=== PATIENT | male | born 1980 | race Caucasian/White ===

== ENCOUNTER 2017-12-23 12:03 | Emergency (ER) | payer MEDICARE, MEDICAID ==
[~2017-12-23] VITALS: Ht 165.1 cm; Wt 84.1 kg
[~2017-12-23 12:03] MED LIST: ALBU8.5H8 IH; ALPR-624 PO; AZEL23SP IH; BENA10TA10 PO; BUDE10.2 IH; BUPR150T26 PO; MODA200T25 PO; MONT10TA21 PO; ONDA4TAB9 PO; PALI156D IM; RIZA10TA29 PO; SYN0.1T PO; VAL5T PO; VORT20TA PO
[2017-12-23 12:19] VITALS: BP 120/85
[2017-12-23] MEDS ORDERED: HYDROcodone/acetaminophen 10/325mg tab PO ONE (12:35)
[2017-12-23] MEDS ORDERED: METH-360 PO (12:36)
== END 2017-12-23 12:51 | disposition home or self-care (01) ==
LOC: ER 12:03
DX: G89.29 Other chronic pain (principal); M54.5 Low back pain; E78.00 Pure hypercholesterolemia, unspecified; I10 Essential (primary) hypertension; J45.909 Unspecified asthma, uncomplicated; F31.9 Bipolar disorder, unspecified; Z90.89 Acquired absence of other organs; Z88.0 Allergy status to penicillin; Z88.2 Allergy status to sulfonamides; Z91.010 Allergy to peanuts; Z88.6 Allergy status to analgesic agent; Z79.899 Other long term (current) drug therapy
CPT/HCPCS: 99283

== ENCOUNTER 2019-09-26 14:07 | Emergency (ER) | payer MEDICARE, MEDICAID ==
[~2019-09-26] VITALS: Ht 165.1 cm; Wt 100.0 kg
[~2019-09-26 14:07] MED LIST changes: -BENA10TA10 PO; +BENA10TA75 PO; +METH-360 PO; -RIZA10TA29 PO; +RIZA10TA98 PO
--- NOTE | 2019-09-26 14:59 | NUR ---
Pt had requested to have Dr. Bowers office called and ask "what Dr. Cornell wanted him to have checked out at the emergency department". Called and spoke with Dr. Bowers nurse Helen. Nurse reports pt had been frequenty calling and reporting/complaining of many sxs. Pt and his mother had researched online possible complications regarding meds pt taking and was worried pt could have Neuromalignant Syndrome, or serotonin syndrome. As Dr. Bowers office is currently only doing telephone consults and unable to do physical, pt was referred to have sxs evaluated at emergency department. RN verified pt had recently tested possitive for Elaido-Ha virus 09/18/19
[2019-09-26 15:59] LABS: BASOPHILS % (AUTO) 0.5 % (0-1); EOSINOPHILS # (AUTO) 0.1 X10'3 (0-0.9); EOSINOPHILS % (AUTO) 1.3 % (0-6); HEMATOCRIT 44.5 % (42.0-52.0); HEMOGLOBIN 15.1 g/dl (14.0-17.9); LYMPHOCYTES # (AUTO) 1.7 X10'3 (1.1-4.8); LYMPHOCYTES % (AUTO) 23.4 % (21-51); MEAN CORPUSCULAR HEMOGLOBIN 30.8 PG (27.0-31.0); MEAN CORPUSCULAR VOLUME 90.7 FL (78-98); MEAN PLATELET VOLUME 7.1 FL (7.4-10.4); MONOCYTES # (AUTO) 0.4 X10'3 (0-0.9); MONOCYTES % (AUTO) 5.6 % (2-12); NEUTROPHILS % (AUTO) 69.2 % (42-75); PLATELET COUNT 328 X10'3 (140-440); RED BLOOD COUNT 4.91 X10'6 (4.70-6.10); RED CELL DISTRIBUTION WIDTH 13.1 % (11.5-14.5); WHITE BLOOD COUNT 7.2 X10'3 (4.5-11.0)
--- NOTE | 2019-09-26 16:12 | NUR ---
x-ray is happening at this time.
[2019-09-26 16:15] LABS: ALANINE AMINOTRANSFERASE 29 U/L (12-78); ALBUMIN 3.7 G/DL (3.4-5.0); ALBUMIN/GLOBULIN RATIO 0.9 (1.1-1.5); ALKALINE PHOSPHATASE 85 IU/L (46-116); ANION GAP 5 (8-16); ASPARTATE AMINO TRANSFERASE 22 U/L (10-37); BILIRUBIN,TOTAL 0.3 MG/DL (0.1-1.0); BLOOD UREA NITROGEN 13 MG/DL (7-18); BUN/CREATININE RATIO 12.6 (5.4-32.0); C-REACTIVE PROTEIN 0.23 MG/DL (0.0-0.5); CALCIUM 9.2 MG/DL (8.5-10.1); CHLORIDE 105 MMOL/L (99-107); CREATININE 1.03 MG/DL (0.60-1.10); GLUCOSE 92 MG/DL (70-104); POTASSIUM 4.4 MMOL/L (3.5-5.1); SODIUM 143 MMOL/L (135-145); TOTAL CARBON DIOXIDE 33.2 MMOL/L (24-32); TOTAL PROTEIN 7.7 G/DL (6.4-8.2); eGFR 80 ML/MIN
[2019-09-26 17:31] VITALS: BP 125/86
== END 2019-09-26 17:27 | disposition home or self-care (01) ==
LOC: ER 14:11
DX: B34.9 Viral infection, unspecified (principal); E66.9 Obesity, unspecified; E78.00 Pure hypercholesterolemia, unspecified; I10 Essential (primary) hypertension; J45.909 Unspecified asthma, uncomplicated; G89.29 Other chronic pain; Z87.01 Personal history of pneumonia (recurrent); Z79.899 Other long term (current) drug therapy; Z90.49 Acquired absence of other specified parts of digestive tract; Z88.6 Allergy status to analgesic agent; Z88.1 Allergy status to other antibiotic agents; Z88.0 Allergy status to penicillin; Z88.2 Allergy status to sulfonamides
CPT/HCPCS: 36415; 71045; 80053; 85025; 85651; 86140; 93005; 99285

== ENCOUNTER 2020-06-17 15:45 | Emergency (ER) | payer MEDICARE, MEDICAID ==
[~2020-06-17] VITALS: Ht 165.1 cm; Wt 88.6 kg
--- NOTE | 2020-06-17 17:30 | NUR ---
RN assumed care of pt. admission assessments done and belongings checked in. Pt. reports that he was recently discharged from [facility] psych unit and discharged after 6 days. Pt. reports that 6 months ago he got mono and since then his physical and mental health have deteriorated. Pt. states that he developed chronic dizzy spells, muscle spasms and shaking that have taken a toll on his mental health. Pt. was dx with Bipolar since 15 y.o. Pt. 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 Pt. reports that at [place] they tried different muscle relaxors without efect. Pt. reports SI without a plan. Pt. states that he wants to go to bed and not wake up. Pt. denies HI, A/V hallucinations. Pt. is calm and cooperative. Pt.'s mother called and pt. allowed this RN to speak to him.
[2020-06-17 17:46] LABS: BASOPHILS # (AUTO) 0.1 X10'3 (0-0.2); BASOPHILS % (AUTO) 0.7 % (0-1); EOSINOPHILS # (AUTO) 0.2 X10'3 (0-0.9); EOSINOPHILS % (AUTO) 2.8 % (0-6); HEMATOCRIT 45.6 % (42.0-52.0); HEMOGLOBIN 15.4 g/dl (14.0-17.9); LYMPHOCYTES # (AUTO) 2.2 X10'3 (1.1-4.8); LYMPHOCYTES % (AUTO) 26.4 % (21-51); MEAN CORPUSCULAR HEMOGLOBIN 31.3 PG (27.0-31.0); MEAN CORPUSCULAR HGB CONC 33.7 g/dL (33.0-36.5); MEAN CORPUSCULAR VOLUME 92.7 FL (78-98); MEAN PLATELET VOLUME 7.7 FL (7.4-10.4); MONOCYTES # (AUTO) 0.5 X10'3 (0-0.9); NEUTROPHILS # (AUTO) 5.3 X10'3 (1.8-7.7); NEUTROPHILS % (AUTO) 64.1 % (42-75); PLATELET COUNT 335 X10'3 (140-440); RED BLOOD COUNT 4.92 X10'6 (4.70-6.10); RED CELL DISTRIBUTION WIDTH 12.4 % (11.5-14.5); WHITE BLOOD COUNT 8.2 X10'3 (4.5-11.0)
[2020-06-17 17:57] LABS: ALANINE AMINOTRANSFERASE 62 U/L (12-78); ALBUMIN 3.9 G/DL (3.4-5.0); ALBUMIN/GLOBULIN RATIO 0.9 (1.1-1.5); ALKALINE PHOSPHATASE 97 IU/L (46-116); ANION GAP 2 (8-16); ASPARTATE AMINO TRANSFERASE 31 U/L (10-37); BILIRUBIN,TOTAL 0.4 MG/DL (0.1-1.0); BLOOD UREA NITROGEN 13 MG/DL (7-18); BUN/CREATININE RATIO 16.3 (5.4-32.0); CALCIUM 9.3 MG/DL (8.5-10.1); CHLORIDE 103 MMOL/L (99-107); GLUCOSE 104 MG/DL (70-104); POTASSIUM 5.3 MMOL/L (3.5-5.1); SODIUM 139 MMOL/L (135-145); TOTAL CARBON DIOXIDE 34.1 MMOL/L (24-32); TOTAL PROTEIN 8.2 G/DL (6.4-8.2); eGFR > 90 ML/MIN
--- NOTE | 2020-06-17 18:00 | NUR ---
Mother contact: [facility] [phone]. Cell [phone].
[2020-06-17 18:17] LABS: ETHANOL < 0.010 GM/DL (0.0-0.010)
[2020-06-17] MEDS ORDERED: PROP10TA10 (18:40)
[2020-06-17] MEDS ORDERED: OXYB5TAB16 (18:40)
[2020-06-17] MEDS ORDERED: FLUOXETINE (18:40)
[2020-06-17] MEDS ORDERED: BUPR1FIL17 SL ×2 (18:40→19:55)
[2020-06-17] MEDS ORDERED: BENA10TA74 PO (18:40)
[2020-06-17] MEDS ORDERED: LEVO88TA7 PO (18:40)
[2020-06-17] MEDS ORDERED: FLUO-103 (18:40)
[2020-06-17] MEDS ORDERED: DEXT10CA19 PO (18:40)
[2020-06-17] MEDS ORDERED: TEMA15CA PO (18:40)
[2020-06-17 19:22] LABS: URINE AMPHETAMINE SCREEN NEGATIVE (Neg); URINE BARBITUATE SCREEN NEGATIVE (Neg); URINE BENZODIAZEPINES SCREEN NEGATIVE (Neg); URINE CANNABINOID SCREEN NEGATIVE (Neg); URINE COCAINE SCREEN NEGATIVE (Neg); URINE METHADONE SCREEN NEGATIVE (Neg); URINE OPIATE SCREEN NEGATIVE (Neg); URINE PHENCYCLIDINE SCREEN NEGATIVE (Neg)
--- NOTE | 2020-06-17 19:31 | NUR ---
PACKET FAXED TO [facility]
[2020-06-17] MEDS ORDERED: OXYB5TAB16 PO (19:55)
[2020-06-17] MEDS ORDERED: FLUT1DIS15 INH (19:55)
[2020-06-17] MEDS ORDERED: PROP10TA10 PO (19:55)
[2020-06-17] MEDS ORDERED: FLUO-81 PO (19:55)
[2020-06-17] MEDS ORDERED: ALBUTEROL INHALER 1 PUFF/90 MCG INHALER IH PRN (20:15)
[2020-06-17] MEDS ORDERED: albuterol 2.5 MG/3 ML nebule NEB PRN (20:35)
[2020-06-17] MEDS: propranolol 10mg tablet PO SCH (20:35)
[2020-06-17] MEDS: buprenorphine/naloxone 2-0.5mg sublingual tablet SL SCH (20:37)
[2020-06-17] MEDS ORDERED: oxybutynin 5mg tablet PO SCH (21:00)
[2020-06-17] MEDS ORDERED: temazepam 15mg capsule PO SCH (21:00)
[2020-06-17] MEDS: albuterol 2.5 MG/3 ML nebule NEB SCH (22:35)
[2020-06-18 05:00] VITALS: BP_DIAS 69
[2020-06-18 06:59] LABS: CLARITY,URINE CLEAR (Clear); COLOR,URINE YELLOW (Yellow); GLUCOSE, URINE NEGATIVE (Neg); KETONES,URINE NEGATIVE (Neg); LEUKOCYTE ESTERASE ,URINE NEGATIVE (Neg); NITRITES, URINE NEGATIVE (Neg); OCCULT BLOOD,URINE NEGATIVE (Neg); PROTEIN,URINE NEGATIVE (Neg); UROBILINOGEN,URINE 0.2 E.U/dL (0.2-1.0)
--- NOTE | 2020-06-18 07:00 | NUR ---
ASSUMED CARE OF PATIENT. PT IS SLEEPING
[2020-06-18 07:02] LABS: UA COLLECTION TYPE CLN CATCH MIDSTREAM
[2020-06-18] MEDS ORDERED: FLUoxetine 10mg capsule PO SCH (08:00)
[2020-06-18] MEDS ORDERED: lisinopril 10 MG tablet PO SCH (08:00)
[2020-06-18] MEDS ORDERED: dextroamphetamine/amphetamine ER 5 MG CAP.ER.24H PO SCH (08:00)
[2020-06-18] MEDS ORDERED: budesonide 0.5mg/2ml UD nebule IH SCH (08:00)
[2020-06-18] MEDS ORDERED: levoTHYROXINE 88mcg tablet PO SCH (08:00)
[2020-06-18] MEDS: albuterol 2.5 MG/3 ML nebule NEB SCH (08:00)
--- NOTE | 2020-06-18 08:00 | NUR ---
PT IS AWAKE EATING BREAKFAST
[2020-06-18] MEDS ORDERED: dextroamphetamine/amphetamine 10mg tablet PO SCH (08:45)
--- NOTE | 2020-06-18 09:00 | NUR ---
PT IS SLEEPING NO ISSUES AT THIS TIME
[2020-06-18] MEDS ORDERED: dextroamphetamine/amphetamine 5mg tablet PO SCH (09:08)
[2020-06-18] MEDS: propranolol 10mg tablet PO SCH (09:32)
[2020-06-18 09:35] VITALS: BP_SYST 112
[2020-06-18] MEDS: buprenorphine/naloxone 2-0.5mg sublingual tablet SL SCH (09:37)
--- NOTE | 2020-06-18 10:00 | NUR ---
PT IS SLEEPING
--- NOTE | 2020-06-18 11:00 | NUR ---
PT HAS ALOT OF ANIXIETY REGARDING WHEN HE WILL BE PLACED
--- NOTE | 2020-06-18 12:02 | NUR ---
PT IS AWAKE RESTING IN HIS ROOM. NO ISSUES AT THIS TIME
== END 2020-06-18 13:11 ==
LOC: ER 15:46
DX: R45.851 Suicidal ideations (principal); R50.9 Fever, unspecified; R51.9 Headache, unspecified; E78.00 Pure hypercholesterolemia, unspecified; I10 Essential (primary) hypertension; J45.909 Unspecified asthma, uncomplicated; G89.29 Other chronic pain; F41.9 Anxiety disorder, unspecified; F31.9 Bipolar disorder, unspecified; Z87.01 Personal history of pneumonia (recurrent); Z90.89 Acquired absence of other organs; Z60.2 Problems related to living alone; Z88.0 Allergy status to penicillin; Z88.2 Allergy status to sulfonamides; Z88.1 Allergy status to other antibiotic agents; Z88.6 Allergy status to analgesic agent; Z88.8 Allergy status to other drugs, medicaments and biological substances; Z91.010 Allergy to peanuts; Z79.899 Other long term (current) drug therapy
CPT/HCPCS: 36415; 80053; 80305; 80320; 81003; 84443; 85025; 94760; 99285

== ENCOUNTER 2021-08-12 13:16 | Emergency (ER) | payer MEDICARE, MEDICAID ==
[~2021-08-12] VITALS: Ht 165.1 cm; Wt 120.5 kg
[~2021-08-12 13:16] MED LIST changes: +ALBU8.5H17 IH; -ALBU8.5H8 IH; -ALPR-624 PO; -AZEL23SP IH; +BENA10TA74 PO; -BENA10TA75 PO; -BUDE10.2 IH; -BUPR150T26 PO; +BUPR1FIL17 SL; +DEXT10CA19 PO; +FLUO-81 PO; +FLUT1DIS15 INH; +LEVO88TA7 PO; -METH-360 PO; -MODA200T25 PO; -MONT10TA21 PO; -ONDA4TAB9 PO; +OXYB5TAB16 PO; -PALI156D IM; +PROP10TA10 PO; -RIZA10TA98 PO; -SYN0.1T PO; +TEMA15CA PO; -VAL5T PO; -VORT20TA PO
[2021-08-12 13:55] LABS: BASOPHILS % (AUTO) 0.3 % (0-1); EOSINOPHILS # (AUTO) 0.1 X10'3 (0-0.9); EOSINOPHILS % (AUTO) 1.5 % (0-6); HEMATOCRIT 42.7 % (42.0-52.0); HEMOGLOBIN 14.2 g/dl (14.0-17.9); LYMPHOCYTES # (AUTO) 2.5 X10'3 (1.1-4.8); LYMPHOCYTES % (AUTO) 37.2 % (21-51); MEAN CORPUSCULAR HGB CONC 33.3 g/dL (33.0-36.5); MEAN CORPUSCULAR VOLUME 90.2 FL (78-98); MEAN PLATELET VOLUME 6.9 FL (7.4-10.4); MONOCYTES # (AUTO) 0.5 X10'3 (0-0.9); MONOCYTES % (AUTO) 8.3 % (2-12); NEUTROPHILS # (AUTO) 3.5 X10'3 (1.8-7.7); NEUTROPHILS % (AUTO) 52.7 % (42-75); PLATELET COUNT 369 X10'3 (140-440); RED BLOOD COUNT 4.73 X10'6 (4.70-6.10); RED CELL DISTRIBUTION WIDTH 12.5 % (11.5-14.5); WHITE BLOOD COUNT 6.6 X10'3 (4.5-11.0)
[2021-08-12 14:09] LABS: ALANINE AMINOTRANSFERASE 54 U/L (12-78); ALBUMIN 3.6 G/DL (3.4-5.0); ALBUMIN/GLOBULIN RATIO 0.9 (1.1-1.5); ALKALINE PHOSPHATASE 104 IU/L (46-116); ANION GAP 8 (8-16); ASPARTATE AMINO TRANSFERASE 36 U/L (10-37); BILIRUBIN,TOTAL 0.3 MG/DL (0.1-1.0); BLOOD UREA NITROGEN 14 MG/DL (7-18); BUN/CREATININE RATIO 13.9 (5.4-32.0); CALCIUM 8.3 MG/DL (8.5-10.1); CHLORIDE 103 MMOL/L (99-107); CREATININE 1.01 MG/DL (0.60-1.10); GLUCOSE 101 MG/DL (70-104); POTASSIUM 4.4 MMOL/L (3.5-5.1); SODIUM 141 MMOL/L (135-145); TOTAL CARBON DIOXIDE 29.8 MMOL/L (24-32); TOTAL PROTEIN 7.6 G/DL (6.4-8.2); eGFR 81 ML/MIN
[2021-08-12 14:56] LABS: D-DIMER 0.56 MG/L FEU (0-0.50)
[2021-08-12] MEDS ORDERED: normal saline 1000ML IV soln IVB ONE (16:50)
[2021-08-12] MEDS ORDERED: hydrOXYzine 25 MG tablet PO ONE (17:00)
[2021-08-12] MEDS ORDERED: iohexol 350MG/ML 100ml bottle IV ONE (17:05)
[2021-08-12] MEDS ORDERED: diazepam 5mg tablet PO ONE (17:15)
[2021-08-12 20:19] VITALS: BP 138/78
== END 2021-08-12 20:24 | disposition home or self-care (01) ==
LOC: ER 13:17
DX: R07.89 Other chest pain (principal); I51.7 Cardiomegaly; E78.00 Pure hypercholesterolemia, unspecified; I10 Essential (primary) hypertension; J45.909 Unspecified asthma, uncomplicated; G89.29 Other chronic pain; F41.9 Anxiety disorder, unspecified; F32.A Depression, unspecified; Z87.01 Personal history of pneumonia (recurrent); Z90.89 Acquired absence of other organs; Z60.2 Problems related to living alone; Z88.8 Allergy status to other drugs, medicaments and biological substances; Z88.0 Allergy status to penicillin; Z88.2 Allergy status to sulfonamides; Z88.6 Allergy status to analgesic agent; Z79.899 Other long term (current) drug therapy
CPT/HCPCS: 36415; 71045; 71275; 80053; 83880; 84484; 85025; 85379; 93005; 99285; J7030; Q9967

== ENCOUNTER 2023-04-02 13:50 | Inpatient (IN) | payer MEDICARE, MEDICAID ==
[~2023-04-02] VITALS: Ht 165.1 cm; Wt 110.5 kg
--- NOTE | 2023-04-02 15:52 | NUR ---
ADMIT NOTE: Patient admitted directly from [facility]. Per 7740 the patient was brought to [facility] by [employer] after ingesting 1800 mg of Seroquel in an attempt to end his life
[2023-04-02 19:00] VITALS: BP 139/89; PULSE 96; RESP 16; TEMP 97.2; O2SAT 99
[2023-04-02] MEDS ORDERED: DESV50TA20 PO (20:12)
[2023-04-02] MEDS ORDERED: TIZA-205 PO (20:14)
[2023-04-02] MEDS ORDERED: VALA500T41 (20:14)
[2023-04-02] MEDS ORDERED: TEMA30CA PO (20:17)
[2023-04-02] MEDS ORDERED: FLUO-1 PO (20:19)
[2023-04-02] MEDS ORDERED: TEMA15CA PO (20:23)
[2023-04-02] MEDS ORDERED: FLUoxetine 20mg capsule PO ONE (20:30)
[2023-04-02] MEDS ORDERED: temazepam 15mg capsule PO ONE (20:30)
[2023-04-02] MEDS ORDERED: oxybutynin 5mg tablet PO ONE (20:30)
[2023-04-02] MEDS ORDERED: magnesium hydroxide 30ml (MOM) UD suspension PO PRN (20:40)
[2023-04-02] MEDS ORDERED: mag hydrox/Alum hydrox/simeth 30ml oral suspension PO PRN (20:40)
[2023-04-02] MEDS ORDERED: acetaminophen 325mg tablet PO PRN ×2 (20:40)
[2023-04-02] MEDS ORDERED: loperamide 2mg capsule PO PRN (20:40)
[2023-04-02] MEDS ORDERED: buprenorphine/naloxone 2-0.5mg sublingual tablet SL SCH (21:00)
[2023-04-03] MEDS ORDERED: DEXT10CA19 PO (03:11)
[2023-04-03] MEDS ORDERED: DEXT15CA33 PO (03:13)
[2023-04-03] MEDS ORDERED: TEMA30CA PO (03:15)
[2023-04-03] MEDS ORDERED: albuterol 2.5 MG/3 ML nebule NEB PRN (03:55)
--- NOTE | 2023-04-03 05:06 | NUR ---
PROGRESS NOTE: PROBLEM: Client overdosed on Seroquel. INTERVENTIONS: Admin meds. Q 15 min checks for safety. 1:1 assessments. RESPONSE: Client stayed in bed during the shift. He was anxious about getting the correct (prescribed) meds. This RN reviewed each medication with the client several times, until he felt comfortable with the Med Rec. Client has an extensive number of somatic complaints. He took his PM meds and was talkative during the 1:1 assessment. Client stated "I feel I would do better at my Moms house because I know she would help me get the correct meds." Client is also concerned about an upcoming [employer] inspection he needs to get ready for. Clients affect and mood are anxious. Reported a history of Bipolar DO. PLAN: Medication adjustment.
[2023-04-03 08:00] VITALS: BP 132/71; PULSE 61; RESP 12; TEMP 97.7; O2SAT 98
[2023-04-03] MEDS ORDERED: dextroamphetam/amphetam ER cap 15 MG CAP.ER.24H PO SCH (08:00)
[2023-04-03 08:23] VITALS: PULSE 87; RESP 17; O2SAT 98
[2023-04-03] MEDS: budesonide 0.5mg/2ml UD nebule IH SCH ×2 (08:33→20:35)
[2023-04-03] MEDS: albuterol 2.5 MG/3 ML nebule NEB SCH ×3 (08:34→20:36)
[2023-04-03] MEDS: ALPRAZolam 0.5mg tablet PO SCH ×2 (09:02→20:55)
[2023-04-03] MEDS: FLUoxetine 20mg capsule PO SCH ×2 (09:02→20:56)
[2023-04-03] MEDS: venlafaxine 25mg tablet PO SCH ×3 (09:02→20:55)
[2023-04-03] MEDS: buprenorphine/naloxone 2-0.5mg sublingual tablet SL SCH ×3 (09:03→21:04)
[2023-04-03] MEDS: lisinopril 10 MG tablet PO SCH (09:04)
[2023-04-03 09:26] LABS: CHOL/HDL RATIO 5.8 (0.00-4.99); CHOLESTEROL 226 MG/DL (0-200); HDL CHOLESTEROL 39 MG/DL (35-60); LDL CHOLESTEROL 148 MG/DL (50-100); TRIGLYCERIDES 125 MG/DL (20-135)
[2023-04-03 09:29] LABS: HEMOGLOBIN A1C 5.4 % (4.5-6.2)
[2023-04-03] MEDS: dextroamphetamine/amphetamine 5mg tablet PO SCH (13:09)
[2023-04-03 15:34] VITALS: PULSE 105; RESP 18; O2SAT 98
--- NOTE | 2023-04-03 15:34 | NUR ---
PROGRESS NOTE: PROBLEM: Client overdosed on Seroquel. INTERVENTIONS: Admin meds. Q 15 min checks for safety. 1:1 assessments. RESPONSE: Patient was received sleeping at beginning of shift. Patient was cooperative with morning medications. Nurse was not able to give patine this Adderall ER due to the pharmacy not having that version Dr. Tompkins was called and the order was changed to Adderall 10mg @ 8 am and 5mg @1300. Patient was agreeable with change and was given 5mg at 1300. Patient chose to stay in community room after lunch and socialize with other patients. The patient did talk to the doctor and new order were placed. Patient is confident he will be out of here in two days. PLAN: Medication adjustment.
[2023-04-03 19:00] VITALS: RESP 20; O2SAT 100
[2023-04-03 20:00] VITALS: BP 140/101; PULSE 100; RESP 20; TEMP 97.1; O2SAT 100
[2023-04-03 20:37] VITALS: PULSE 82; RESP 18; O2SAT 96
[2023-04-03] MEDS: valacyclovir 500mg tablet PO SCH (20:55)
[2023-04-03] MEDS: oxybutynin 5mg tablet PO SCH (20:55)
[2023-04-03] MEDS: temazepam 15mg capsule PO SCH (20:56)
[2023-04-03] MEDS: tizanidine 4mg tablet PO PRN (21:04)
[2023-04-04] VITALS (8 sets, daily range): BP systolic 98–122; BP diastolic 70–82; PULSE 77–92; RESP 16–19; TEMP 96.9–97.8; O2SAT 97–98
[2023-04-04] MEDS ORDERED: buprenorphine/naloxone 2-0.5mg sublingual tablet SL ONE (01:05)
[2023-04-04] MEDS: albuterol 2.5 MG/3 ML nebule NEB SCH ×3 (03:00→20:02)
--- NOTE | 2023-04-04 05:05 | NUR ---
Nursing Progress Note: PROBLEM: Client overdosed on Seroquel. INTERVENTIONS: Admin meds. Q 15 min checks for safety. 1:1 assessments. RESPONSE: Pt found lying in bed sleeping at shift change. Upon assessment and rounding, pt was very interactive, cooperative and expressed high attention to detail r/t medication administration and health status. Pt was compliant to medication administration. At approx. 2300/0000, pt expressed difficulty falling asleep and responding to some IS. Expressed continued back pain 12/14 despite Zanaflex given. With pain and racing thoughts, pt inquired about his Suboxone order to help with pain and sleep. Per pt and med rec/external pharmacy, pt takes Suboxone 5x/daily at home. Order is currently established for [facility]. Contacted Dr. Tompkins pertaining discrepancy, Dr. Tompkins ordered additional dose to be given now, and will need med reviewed and reconciled to correct frequency/timing in AM. Additional x1 dose given at @[address] Tompkins. Pt was agreement to tx plan, and slept soundly throughout remainder of shift. PLAN: Medication adjustment.
[2023-04-04] MEDS: lisinopril 10 MG tablet PO SCH (08:00)
[2023-04-04] MEDS: ALPRAZolam 0.5mg tablet PO SCH ×2 (08:00→19:47)
[2023-04-04] MEDS: budesonide 0.5mg/2ml UD nebule IH SCH ×2 (09:00→20:02)
[2023-04-04] MEDS: venlafaxine 25mg tablet PO SCH ×3 (09:09→19:48)
[2023-04-04] MEDS: buprenorphine/naloxone 2-0.5mg sublingual tablet SL SCH ×3 (09:09→19:49)
[2023-04-04] MEDS: valacyclovir 500mg tablet PO SCH ×2 (09:09→19:48)
[2023-04-04] MEDS: FLUoxetine 20mg capsule PO SCH ×2 (09:09→19:48)
[2023-04-04] MEDS: dextroamphetamine/amphetamine 5mg tablet PO SCH ×2 (09:10→12:50)
[2023-04-04] MEDS: tizanidine 4mg tablet PO PRN ×2 (09:42→19:47)
[2023-04-04] MEDS ORDERED: buprenorphine/naloxone 2-0.5mg sublingual tablet SL PRN ×2 (15:00→15:30)
--- NOTE | 2023-04-04 16:39 | NUR ---
PROGRESS NOTE: PROBLEM: Patient admitted directly from [facility]. Per 5150 the patient was brought to [facility] by [employer] after ingesting 1800 mg of Seroquel in an attempt to end his life INTERVENTIONS: Administer medications as prescribed, Monitor patient response and/or behaviors, Reassure patient of safety, Administer PRN meds as appropriate, increased level of observation, Minimize amount of environmental stimulation, Observe for triggers, Monitor patient behaviors, Reinforce reality, q15 minute checks. RESPONSE: Nurse received pt. asleep at change of shift. 1:1 done at bedside and medications administered at bedside. Pt became instantly upset regarding his medications stating, I do not take Xanax, I take Zanaflex and I need my suboxone to be five times a day and my adderall to be extended release. Nurse tried to explain his medication regimen to him but he would not listen. Pt. refused his Xanax and received his PRN zanafex at 0946. Nurse encourage pt. to speak with his doctor regarding his medications once they arrive to the unit. Pt ate meals in the community room and spent a lot of the shift in his bed resting. Pt denied all MH symptoms. PRN suboxone administered per pt request. Pt status changed to voluntary and plan to discharge tomorrow. PLAN: Pt. requires interruption of current crisis, medication adjustments, and a safe and supportive environment. Plan is to discharge home tomorrow 04/05/23.
[2023-04-04] MEDS: temazepam 15mg capsule PO SCH (19:47)
[2023-04-04] MEDS: oxybutynin 5mg tablet PO SCH (19:48)
--- NOTE | 2023-04-05 02:26 | NUR ---
PROGRESS NOTE: PROBLEM: Patient admitted directly from [facility]. Per 5150 the patient was brought to [facility] by [employer] after ingesting 1800 mg of Seroquel in an attempt to end his life INTERVENTIONS: Administer medications as prescribed, Monitor patient response and/or behaviors, Reassure patient of safety, Administer PRN meds as appropriate, increased level of observation, Minimize amount of environmental stimulation, Observe for triggers, Monitor patient behaviors, Reinforce reality, q15 minute checks. RESPONSE: Upon arrival to shift noted patient lying in bed. Very talkative and shared much context for each question asked by nurse. Expressed his appreciation for sitting and talking with him. Appeared to be anxious, was talking fast. Compliant with HS meds. PRN Zanaflex given. Denies SI, HI, A/VH. Appears to have poor hygiene with disheveled hair. Eager to discharge today. PLAN: Pt. requires interruption of current crisis, medication adjustments, and a safe and supportive environment. Plan is to discharge home today 04/05/23.
[2023-04-05 07:00] VITALS: RESP 18; O2SAT 99
[2023-04-05 08:00] VITALS: BP 146/96; PULSE 72; RESP 18; TEMP 98.3; O2SAT 99
[2023-04-05] MEDS: venlafaxine 25mg tablet PO SCH ×2 (08:21→13:19)
[2023-04-05] MEDS: valacyclovir 500mg tablet PO SCH (08:21)
[2023-04-05] MEDS: buprenorphine/naloxone 2-0.5mg sublingual tablet SL SCH ×2 (08:21→13:19)
[2023-04-05] MEDS: FLUoxetine 20mg capsule PO SCH (08:21)
[2023-04-05] MEDS: dextroamphetamine/amphetamine 5mg tablet PO SCH ×2 (08:21→13:19)
[2023-04-05] MEDS: lisinopril 10 MG tablet PO SCH (08:22)
[2023-04-05] MEDS: tizanidine 4mg tablet PO PRN (08:22)
[2023-04-05] MEDS: ALPRAZolam 0.5mg tablet PO SCH (08:22)
[2023-04-05] MEDS: albuterol 2.5 MG/3 ML nebule NEB SCH ×2 (09:00→14:57)
[2023-04-05] MEDS: budesonide 0.5mg/2ml UD nebule IH SCH (09:00)
[2023-04-05 09:45] VITALS: BP 130/84; PULSE 63; RESP 16
--- NOTE | 2023-04-05 14:39 | NUR ---
DISCHARGE PLAN Regis is on voluntary status and wishes to discharge today. He denied any current SI. He reported he is safe to return home. He has follow up scheduled at [facility]. He reported his aunt can pick him up upon discharge. JEREMY Brandon
[2023-04-05] MEDS ORDERED: TEMA15CA PO (16:11)
[2023-04-05] MEDS ORDERED: TIZA-205 PO (16:11)
[2023-04-05] MEDS ORDERED: VALA500T41 PO (16:11)
--- NOTE | 2023-04-05 16:39 | NUR ---
Pt. discharged at 1638 to home. Pt. inventory completed and reviewed with pt. Pt. discharge paperwork reviewed, understood and signed by pt. Pt. escorted off the unit with staff. Pt. aunt picked up pt. Pt in no acute distress. Pt. left the unit with a disheveled appearance and unmanaged hair.
== END 2023-04-05 16:38 | disposition home or self-care (01) | DRG 885 ==
LOC: ADULT MH 13:50
PROVIDERS: ADMIT Psychiatry & Neurology Psychiatry; ATTEND Psychiatry & Neurology Psychiatry
DX: F31.4 Bipolar disorder, current episode depressed, severe, without psychotic features (principal); F11.20 Opioid dependence, uncomplicated; Z68.41 Body mass index [BMI] 40.0-44.9, adult; F60.3 Borderline personality disorder; B00.9 Herpesviral infection, unspecified; E66.9 Obesity, unspecified; N32.81 Overactive bladder; F43.10 Post-traumatic stress disorder, unspecified; G89.29 Other chronic pain; I10 Essential (primary) hypertension; M54.9 Dorsalgia, unspecified; J45.909 Unspecified asthma, uncomplicated; M51.26 Other intervertebral disc displacement, lumbar region; R53.82 Chronic fatigue, unspecified; Z74.01 Bed confinement status; Z91.010 Allergy to peanuts; Z88.8 Allergy status to other drugs, medicaments and biological substances; Z91.018 Allergy to other foods; Z88.6 Allergy status to analgesic agent; Z88.2 Allergy status to sulfonamides; Z88.1 Allergy status to other antibiotic agents; Z88.0 Allergy status to penicillin; Z90.49 Acquired absence of other specified parts of digestive tract
CPT/HCPCS: 36415; 80061; 83036; 87081; 94760

== ENCOUNTER 2023-10-24 16:03 | Emergency (ER) | payer MEDICARE, MEDICAID ==
[~2023-10-24 16:03] MED LIST changes: +DESV50TA20 PO; +DEXT15CA33 PO; +FLUO-1 PO; -FLUO-81 PO; -LEVO88TA7 PO; -OXYB5TAB16 PO; +OXYB5TAB21 PO; -PROP10TA10 PO; +TEMA30CA PO; +TIZA-205 PO; +VALA500T41 PO
== END 2023-10-24 18:34 | disposition left against medical advice (07) ==
LOC: ER 16:03
DX: Z04.6 Encounter for general psychiatric examination, requested by authority (principal); Z53.21 Procedure and treatment not carried out due to patient leaving prior to being seen by health care provider